=== PATIENT | female | born 1965 | race Caucasian/White ===

== ENCOUNTER 2017-07-19 20:48 | Emergency (ER) | payer OTHER ==
[~2017-07-19 20:48] MED LIST: FIORICET 50-301 EACH PO; IMITREX50 M1 PO; ZOFRAN ODT4 M1 SL
[2017-07-19 20:55] VITALS: BP 118/79
--- NOTE | 2017-07-19 21:12 | ED NECK/BACK PAIN COMPLAINT ---
History of Present Illness General Chief Complaint: Lower Extremity Problems Stated Complaint: PT HAS LOWER BACK PAIN Source: patient Exam Limitations: no limitations Vital Signs & Intake/Output Vital Signs & Intake/Output Vital Signs Date Time Temp Pulse Resp B/P B/P Pulse O2 O2 Flow FiO2 Mean Ox Delivery Rate 07/19 2101 100 Room Air 07/19 2054 98.2 74 16 118/79 98 Room Air Allergies Coded Allergies: azithromycin (SWELLING/HIVES 12/20/15) Triage Note: PER PT LOW BACK PAIN SINCE YESTERDAY CRAMPY TYPE PAIN DENIES INURY RADIATES TO RT RIBS AND PAIN WITH INSPIRATION Triage Nurses Notes Reviewed? yes Onset: Gradual Duration: waxing and waning Timing: recent history Location: paraspinous muscles HPI: Patient is a 52-year-old female who presents emergency room with a 2 day history of gradual onset of left lateral back pain with mild radiation pain to the left flank abdomen region. Patient has been placing heating pads with minimal relief of symptoms denies any lower extremity pain paresthesia saddle paresthesia or bowel bladder incontinence nausea vomiting fever chills dysuria hematuria or change in frequency of urination states movement makes worse at rest symptoms have significantly improved. (Yoshi Kennedy) Reconcile Medications Butalb/Acetaminophen/Caffeine (Fioricet 50-300-40 MG Capsule) 50 MG-300 MG-40 MG CAPSULE 1 TAB PO BID PRN HEADACHE Ciprofloxacin HCl (Cipro) 500 MG TABLET 1 TAB PO BID UTI Hydrocodone/Acetaminophen (Vicodin 5-300 MG Tablet) 5 MG-300 MG TABLET 1 TAB PO BID PRN PAIN Meloxicam (Mobic) 15 MG TABLET 1 TAB PO DAILY PRN PAIN Ondansetron (Zofran Odt) 4 MG TAB.RAPDIS 1 TAB SL TID PRN NAUSEA (Bryan PANDYA,Yadiel Smart) Past History Travel History Traveled to [place] past 21 day No Medical History Any Pertinent Medical History? see below for history Neurological: MIGRAINES EENT: NONE Cardiovascular: NONE Respiratory: NONE Gastrointestinal: NONE Hepatic: NONE Renal: NONE Musculoskeletal: NONE Psychiatric: NONE Endocrine: NONE Blood Disorders: NONE Cancer(s): NONE CULINARY ARTIST/Reproductive: NONE Surgical History Surgical History: non-contributory Psychosocial History Who do you live with Patient/Self What is your primary language [place]ayan Tobacco Use: Never used Family History Hx Contributory? No (Yoshi Kennedy) Review of Systems Review of Systems Constitutional: Reports: no symptoms. Eyes: Reports: no symptoms. Ears, Nose, Throat, Mouth: Reports: no symptoms. Respiratory: Reports: no symptoms. Cardiovascular: Reports: no symptoms. Gastrointestinal/Abdominal: Reports: no symptoms. Musculoskeletal: Reports: see HPI, back pain. Skin: Reports: no symptoms. Neurological/Psychological: Reports: no symptoms. All Other Systems: Reviewed and Negative (Yoshi Kennedy) Physical Exam Physical Exam General Appearance: no apparent distress, alert, comfortable Head: atraumatic Eyes: Bilateral: normal appearance. Ears, Nose, Throat, Mouth: moist mucous membrane Neck: normal inspection, supple Respiratory: no respiratory distress Cardiovascular: regular rate/rhythm Gastrointestinal: normal bowel sounds, soft Extremities: non-tender, normal range of motion Neurologic/Psych: no motor/sensory deficits, awake, alert, oriented x 3, normal gait Skin: intact, normal color, warm/dry Comments: Lumbar spine region no central spinous tenderness left lateral muscular point tenderness upon palpation with palpation to the left flank of point tenderness Core Measures CVA/TIA Diagnosis: No (Yoshi Kennedy) Progress Differential Diagnosis: AAA, aortic dissection, C spine injury, carotid dissection, cauda equina syn, herniated disc, myofascial strain, pyelo/UTI, sciatica, spinal cord inj, thoracic outlet syn, T/L spine injury, ureterolithiasis Plan of Care: Orders Procedure Date/time Status URINALYSIS 07/19 2121 Complete Laboratory Tests 07/19/172125: Urine Color GIULIA, Urine Clarity HAZY H, Urine pH 6.0, Ur Specific [place] 1.025, Urine Protein TRACE H, Urine Ketones TRACE H, Urine Nitrite POS H, Urine Bilirubin NEG, Urine Urobilinogen 2.0 H, Ur Leukocyte Esterase MOD H, Ur Microscopic SEDIMENT EXAMINED, Urine RBC 1-3, Urine WBC 3-5 H, Ur Epithelial Cells MOD H, Urine Bacteria MOD H, Urine Mucus MOD H, Urine Hemoglobin NEG, Urine Glucose NEG Differential diagnosis does include kidney stone versus lumbar strain however patient states that movement symptoms have significantly resolved and are exacerbated by lumbar spine movements which may indicate soft tissue injury rather kidney stone. Urinalysis will be obtained patient has bilateral lower extremities neurovascularly intact. Urine analysis was obtained patient does not disclose any after results were made of UTI symptoms where she will be treated for pyelonephritis. No fever patient is able tolerate by mouth upon discharge (Yoshi Kennedy) Departure Departure Disposition: HOME OR SELF CARE Condition: Stable Clinical Impression Primary Impression: Pyelonephritis Referrals: Parag PANDYA,Angie (PCP/Family) Additional Instructions: As discussed begin the prescription of meloxicam for pain and Vicodin for breakthrough pain relief and begin the prescription ciprofloxacin as directed for the full course. Prescriptions waiting at [facility]. If symptoms worsen or if you develop new concerning symptom return to emergency room. Follow-up with your primary care doctor Monday if no better Departure Forms: Customer Survey General Discharge Information Prescriptions: Current Visit Scripts Ciprofloxacin HCl (Cipro) 1 TAB PO BID #20 TAB Meloxicam (Mobic) 1 TAB PO DAILY PRN PAIN #7 TAB Hydrocodone/Acetaminophen (Vicodin 5-300 MG Tablet) 1 TAB PO BID PRN PAIN #5 TAB (Yoshi Kennedy) PA/SYSTEMS ADMINISTRATION ANALYST Co-Sign Statement Statement: ED Attending supervision documentation- [] I saw and evaluated the patient. I have also reviewed all the pertinent lab results and diagnostic results. I agree with the findings and the plan of care as documented in the PA's/SYSTEMS ADMINISTRATION ANALYST's documentation. [X] I have reviewed the ED Record and agree with the PA's/SYSTEMS ADMINISTRATION ANALYST's documentation. [] Additions or exceptions (if any) to the PAs/SYSTEMS ADMINISTRATION ANALYST's note and plan are summarized below: [] (Bryan PANDYA,Yadiel Smart)
[2017-07-19] MEDS ORDERED: MOBIC15 M1 PO (21:54)
[2017-07-19] MEDS ORDERED: CIPRO500 M1 PO (21:54)
[2017-07-19] MEDS ORDERED: VICODIN 5-3001 EACH PO (21:54)
== END 2017-07-19 22:01 ==
LOC: ERH 20:48
DX: N12 Tubulo-interstitial nephritis, not specified as acute or chronic (principal)
CPT/HCPCS: 81001